=== PATIENT | female | born 1975 | race Caucasian/White ===

== ENCOUNTER 2016-12-05 20:26 | Emergency (ER) | payer OTHER ==
[~2016-12-05] VITALS: Ht 170.2 cm; Wt 85.2 kg
[~2016-12-05 20:26] MED LIST: CHOL1CAP67 PO; CYCL10TA6 PO; IBUP-1428 PO; MELO15TA3 PO; TRAM-10 PO
[2016-12-05 20:30] VITALS: TEMP 37; Ht 170.2 cm; Wt 85.2 kg
[2016-12-05] MEDS ORDERED: OXYC-609 PO (20:39)
[2016-12-05] MEDS ORDERED: ASPI325T39 PO (20:39)
[2016-12-05] MEDS ORDERED: ACET-1256 PO (20:40)
--- NOTE | 2016-12-05 22:14 | DIAGNOSTIC IMAGING REPORT ---
Venous Doppler right leg RIGHT VENOUS DOPP LOWER EXT UNILAT CLINICAL HISTORY: right calf pain, recent surge Right postoperative pain TECHNIQUE: Venous Doppler COMPARISON STUDY: None FINDINGS: Normal study IMPRESSION: Normal study Electronically signed by: Michele Castellano M.D. 12/05/2016 10:13 PM Dictated Date/Time: 12/05/2016 10:12 PM
[2016-12-05 22:18] VITALS: BP 136/81; PULSE 85; O2SAT 93
--- NOTE | 2016-12-05 22:56 | EMERGENCY ROOM VISIT NOTE ---
History First contact with patient: 21:14 Chief Complaint: CALF PAIN Stated Complaint: RT CALF PAIN, RT ANKLE PAIN SWELLING- REFERRED History of Present Illness The patient is a 41 year old female who presents to the Emergency Room for evaluation of right calf pain. The patient recently had bilateral knee arthroscopy at [facility], [place]. She states that the left knee seems to be healing well, but the right knee has been bleeding and soaking through the dressing. She reports increased bruising and swelling in the right leg. She states that she was seen at urgent care today and they were concerned about a blood clots and recommended that she come here for an ultrasound. She states that the pain in the right leg radiates down her calf and upper thigh. She did call her surgeon in a few days ago regarding the bleeding and they told her that this was normal. She has been performing her exercises as directed. She rates her discomfort a 7/10. She is a smoker. She denies any recent long travel. She denies history of blood clots. She denies any fevers, chest pain or shortness of breath. Review of Systems A complete 10-point Review of Systems was discussed with the patient, with pertinent positives and negatives listed in the History of Present Illness. All remaining Review of Systems questions can be considered negative unless otherwise specified. Past Medical/Surgical History Medical Problems: (1) Thoracic outlet syndrome Surgical Problems: (1) H/O resection of rib Family History FHx: gallbladder disease FHx: heart disease Hypertension Social History Smoking Status: Current Every Day Smoker Alcohol Use: occasionally Drug Use: none Marital Status: in relationship Housing Status: lives with significant other Occupation Status: unemployed Current/Historical Medications Scheduled Acetaminophen (Tylenol), 1,000 MG PO Q6 Aspirin (Aspirin Ec), 325 MG PO DAILY Scheduled PRN Oxycodone HCl (Oxycodone HCl), 5 MG PO Q6 PRN for Pain Allergies Coded Allergies: Lidocaine (Verified Allergy, Mild, unknown, 04/23/14) patient stated lidocaine but the was told it was the epinephrine. Physical Exam Vital Signs Date Time Temp Pulse Resp B/P Pulse Ox O2 Delivery O2 Flow Rate FiO2 12/05/16 22:18 85 18 136/81 93 Room Air 12/05/16 20:30 37.0 98 18 144/73 97 Room Air Physical Exam VITALS: Vitals are noted on the nurse's note and reviewed by myself. Vital signs stable. GENERAL: This is a 41-year-old female, in no acute distress, nondiaphoretic, well-developed well-nourished. SKIN: Capillary reflex less than 2 seconds. HEART: Regular rate and rhythm without murmurs gallops or rubs. LUNGS: Clear to auscultation bilaterally without wheezes, rales or rhonchi. MUSCULOSKELETAL: There are well-healing surgical laparoscopy incisions of bilateral knees. There is no significant erythema, warmth or drainage to suggest infection. There is mild bruising of the left knee and moderate bruising of the right knee which extends into the right calf and up to the right thigh. There are no palpable cords. There is no edema of the right calf. Full range of motion of bilateral knees and ankles. NEURO: Patient was alert and oriented to person place and time. Normal sensation to light and sharp touch. Medical Decision & Procedures ER Provider Diagnostic Interpretation: Venous Doppler right leg RIGHT VENOUS DOPP LOWER EXT UNILAT CLINICAL HISTORY: right calf pain, recent surge Right postoperative pain TECHNIQUE: Venous Doppler COMPARISON STUDY: None FINDINGS: Normal study IMPRESSION: Normal study Medical Decision Differential diagnosis includes infection, DVT, superficial thrombosis, postoperative hematoma, among others. The patient was evaluated as above. Ultrasound was performed and showed no DVT in the right lower externally. I believe that the bleeding is likely secondary to a postoperative hematoma. There is no evidence of infection on examination and the surgical wounds appear to be healing very well. The patient was reassured and instructed to follow-up with her surgeon. She verbalized understanding was discharged home in good condition. Impression Primary Impression: Postoperative pain of right knee Additional Impression: Postoperative hematoma Departure Information Dispostion Home / Self-Care Condition GOOD Referrals No Doctor, Assigned (PCP) Patient Instructions My [facility] Additional Instructions For pain control, you can use the following [id number]-bph-dblwyny medicines (if >12 yo): - Regular strength (325mg/tab) Tylenol (acetaminophen) 2 tabs every 4-6 hours as needed. Do not exceed 12 tablets in a 24 hour period. Avoid taking more than 4 grams (4000 mg) of Tylenol per day. This includes any other sources of acetaminophen you may take on a regular basis. - Regular strength (200 mg/tab) Advil (ibuprofen) 1-2 tabs every 4-6 hours as needed. Do not exceed a dose of 3200 mg per day. Proper wound care is essential for adequate wound healing and infection prevention. You can shower and clean the wound with soap and water. Do not scour over the wound, pat dry with a towel. Do not submerse the wound (i.e. bathe or dish wash) until the wound has fully healed. You can use an antibiotic ointment with a dressing over the wound for the next 3-4 days. After this time you may leave the wound dry and open to the air. Follow-up with your surgeon as scheduled. Problem Qualifiers Additional Impression:
== END 2016-12-05 23:01 | disposition home or self-care (01) ==
LOC: C.EDB 20:29 → C.EDC 23:01
DX: G89.18 Other acute postprocedural pain (principal); M96.840 Postprocedural hematoma of a musculoskeletal structure following a musculoskeletal system procedure; Y83.1 Surgical operation with implant of artificial internal device as the cause of abnormal reaction of the patient, or of later complication, without mention of misadventure at the time of the procedure; F17.200 Nicotine dependence, unspecified, uncomplicated; Z90.89 Acquired absence of other organs; Z82.49 Family history of ischemic heart disease and other diseases of the circulatory system; Z79.82 Long term (current) use of aspirin